=== PATIENT | male | born 1970 ===

== ENCOUNTER 2019-01-14 15:27 | Emergency (ER) | payer SELFPAY ==
[2019-01-14 15:35] VITALS: O2SAT 97
[2019-01-14] MEDS ORDERED: Phenylephrine 1% Nasal Spray (15 ml) NAS STA (16:17)
[2019-01-14] MEDS ORDERED: Oxymetazoline 0.05% Nasal Spray (30 ml) NS ONE (16:17)
--- NOTE | 2019-01-14 17:01 | C.PDOC ---
History Of Present Illness 48 year old male presents via ambulance for complaints of a nosebleed that began today around 2:00pm. Patient states he was unable to stop the bleeding, prompting him to come to the ED. He denies any blood thinner use. Patient also denies any recent nasal trauma, fever, dizziness, lightheadedness. Time Seen by Provider: 01/14/19 16:02 Chief Complaint (Nursing): ENT Problem History Per: Patient History/Exam Limitations: no limitations Onset/Duration Of Symptoms: Hrs (x 1) Current Symptoms Are (Timing): Still Present Anticoagulant/Antiplatlet Use?: No Past Medical History Reviewed: Historical Data, Nursing Documentation, Vital Signs Vital Signs: Last Vital Signs Temp 98.7 F 01/14/19 15:34 Pulse 99 H 01/14/19 15:34 Resp 16 01/14/19 15:34 BP 148/83 01/14/19 15:34 Pulse Ox 97 01/14/19 15:34 Surgical History: No Surg Hx Family History: States: No Known Family Hx - Social History Hx Tobacco Use: No Hx Alcohol Use: Yes Hx Substance Use: No - Immunization History Hx Tetanus Toxoid Vaccination: No Hx Influenza Vaccination: No Hx Pneumococcal Vaccination: No Review Of Systems Constitutional: Negative for: Fever, Chills Eyes: Negative for: Vision Change ENT: Positive for: Other (Nose bleed). Negative for: Nose Congestion Cardiovascular: Negative for: Light Headedness Respiratory: Negative for: Cough Neurological: Negative for: Headache, Dizziness Physical Exam - Physical Exam Appears: Well, Non-toxic, No Acute Distress Skin: Warm, Dry, No Rash Head: Atraumatic, Normacephalic Eye(s): bilateral: Normal Inspection Nose: Epistaxis (from left nare), No Septal Hematoma Oral Mucosa: Moist Throat: Normal (uvula midline), No Erythema, No Exudate Neck: Normal ROM, Supple Chest: Symmetrical Cardiovascular: Rhythm Regular, No Murmur Respiratory: Normal Breath Sounds, No Rales, No Rhonchi, No Wheezing Extremity: Bilateral: Atraumatic, Normal Color And Temperature Neurological/Psych: Oriented x3, Normal Speech Gait: Steady ED Course And Treatment ECG: Interpreted By Me, Viewed By Me (dr Clayton) ECG Rhythm: Sinus Rhythm ECG Interpretation: No Acute Changes Rate From EC O2 Sat by Pulse Oximetry: 97 (on room air) Pulse Ox Interpretation: Normal Medical Decision Making Medical Decision Making: Impression: Epistaxis Plan: -pressure to area -ice pack to forehead - Phenylephrine 1% spray administered On reassessment patient is resting comfortably. Hemostasis achieved. Patient remains AAOx3 with clear speech, in no acute distress, with no further episodes of epistaxis. 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 Patient given follow up instructions. Instructed to return to ER if symptoms worsen or new symptoms arise. Disposition Counseled Patient/Family Regarding: Diagnosis, Need For Followup - Disposition Referrals: Ronni Jones MD [Staff Provider] - Disposition: HOME/ ROUTINE Disposition Time: 17:00 Condition: STABLE Additional Instructions: Use nasal spray for maximum of 3 days 1-2 sprays each nostril If you start bleeding again, hold pressure to bridge of nose for 15 minutes without releasing If the bleeding does not stop return to ER Instructions: Nosebleeds (DC) Forms: Sensitive Object (E[place]ian) - POA Present On Arrival: None - Clinical Impression Clinical Impression: Epistaxis - PA / CAREER COUNSELOR / Resident Statement MD/DO has reviewed & agrees with the documentation as recorded. - Scribe Statement The provider has reviewed the documentation as recorded by the Scribbeverly Amor All medical record entries made by the Scribe were at my direction and personally dictated by me. I have reviewed the chart and agree that the record accurately reflects my personal performance of the history, physical exam, medical decision making, and the department course for this patient. I have also personally directed, reviewed, and agree with the discharge instructions and disposition.
[2019-01-14 17:02] VITALS: BP 150/88; PULSE 100; TEMP 98.5
[2019-01-14 17:06] VITALS: RESP 18
--- NOTE | 2019-01-18 19:45 | CARD ---
APPROVED REPORT Date of service: 01/14/2019 EKG Measurement Heart [id number] <Conclusion> Sinus rhythm with short NV Otherwise normal ECG
== END 2019-01-14 17:06 | disposition home or self-care (01) ==
LOC: C.ER 15:27
DX: R04.0 Epistaxis (principal)